=== PATIENT | female | born 1955 | race African-American/Black ===

== ENCOUNTER 2016-12-19 09:19 | Emergency (ER) | payer OTHER ==
[~2016-12-19 09:19] MED LIST: ALBUTEROL17 G1 IH; ALBUTEROL17 GM INH; AMOXICILLIN875 MG PO; ASPIRIN PO; ATIVAN PO; BENZONATATE PO; CALCIUM1 TAB.CHEW; DIFLUCAN PO; FE 90 PLUS TAB1 EACH; FLEXERIL10 MG PO; FLONASE 0.05% N16 G1; HYDROXYZINE HCL25 M1 PO; LORTAB 5/500 TA1 TA1 PO; M.V.I. ADULT10 ML; MEDROL DOSEPAK4 MG PO; MEDROL4 MG/DOSE- PO; MOTRIN600 MG PO; NASONEX17 GM; PREDNISONE PO; ROBAXIN500 MG PO; SINGULAIR; SINGULAIR PO; VICODIN 5/1 TAB 5/50 PO; VOLTAREN50 MG PO; XYZAL5 MG; XYZAL5 MG PO; ZITHROMAX PO
[2016-12-19] MEDS ORDERED: FLONASE 0.05% N16 G1 (09:27)
== END 2016-12-19 10:38 | disposition home or self-care (01) ==
LOC: SED 09:19
DX: H66.92 Otitis media, unspecified, left ear (principal); J01.00 Acute maxillary sinusitis, unspecified; I10 Essential (primary) hypertension; F41.9 Anxiety disorder, unspecified; F32.9 Major depressive disorder, single episode, unspecified; J45.909 Unspecified asthma, uncomplicated; Z87.891 Personal history of nicotine dependence; Z91.040 Latex allergy status
CPT/HCPCS: 99282; 99283

== ENCOUNTER 2017-03-22 10:23 | Emergency (ER) | payer OTHER ==
--- NOTE | ~2017-03-22 | CR94 ---
[facility] A Service of [facility] & [facility] & [facility] RADIOLOGY TEXT RESULTS PATIENT: LUISA MCKEON LOCATION: SED : 59 UNIT #: [id number] AGE: [address]: [address] [place] SEX: F ORDER DR: [id number] [place] [id number] E MR#: [id number] Acc #: [id number] NAME: LUISA MCKEON. : 1955 SEX: F STUDY DATE/TIME: 03/22/2017 11:21 UNIT: SED ROOM: STUDY DESCRIPTION: CR Elbow Min 3 Views Rt Attending Physician: Court Preston Aprn Ordering Physician: Court Preston Aprn Primary Care Physician: Molly Damon M.D. MEDICAL IMAGING REPORT This report is preliminary unless electronic signature is present. EXAM Right elbow 3 views 03/22/2017 1121 hours HISTORY 61-year-old woman who slipped and fell on concrete at work today. Elbow pain since fall. COMPARISON None. FINDINGS AP, lateral and oblique views demonstrate no elbow joint effusion or fracture. There is mild soft tissue swelling posterior to the olecranon. IMPRESSION 1. No joint effusion or fracture. 2. Mild soft tissue swelling posterior to the olecranon. Dictated by... Windy Vásquez M.D. THIS IS AN ELECTRONICALLY VERIFIED REPORT Windy Vásquez M.D. at 03/22/2017 2:31 PM KAREEMM/rnr TD: 03/22/2017 12:49 JOB #: [id number] MEDICAL IMAGING REPORT Page 1 of 1
--- NOTE | ~2017-03-22 | CR157 ---
[facility]. [facility] A Service of [facility] & [facility] RADIOLOGY TEXT RESULTS PATIENT: LUISA MCKEON LOCATION: SED : 59 UNIT #: [id number] AGE: [address]: [address] [place] SEX: F ORDER DR: [id number] [place] [id number] E MR#: [id number] Acc #: [id number] NAME: LUISA MCKEON. : 1955 SEX: F STUDY DATE/TIME: 03/22/2017 11:21 UNIT: SED ROOM: STUDY DESCRIPTION: CR Humerus Min 2 View Rt Attending Physician: Court Preston Aprn Ordering Physician: Court Preston Aprn Primary Care Physician: Molly Damon M.D. MEDICAL IMAGING REPORT This report is preliminary unless electronic signature is present. 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 COMPARISON Right shoulder 06/09/2015 FINDINGS AP and lateral views of the right humerus demonstrate no fracture. There is no dislocation seen at the shoulder or elbow. Previous soft tissue calcifications adjacent to the greater tuberosity on 06/09/2015 have resolved. IMPRESSION Negative right humerus. Dictated by... Windy Vásquez M.D. THIS IS AN ELECTRONICALLY VERIFIED REPORT Windy Vásquez M.D. at 03/22/2017 2:31 PM MEL/antony TD: 03/22/2017 12:43 JOB #: [id number] MEDICAL IMAGING REPORT Page 1 of 1
[2017-03-22] MEDS ORDERED: ZYRTEC10 M1 PO (10:30)
== END 2017-03-22 12:38 | disposition home or self-care (01) ==
LOC: SED 10:23
DX: S39.012A Strain of muscle, fascia and tendon of lower back, initial encounter (principal); S16.1XXA Strain of muscle, fascia and tendon at neck level, initial encounter; S50.01XA Contusion of right elbow, initial encounter; Z88.1 Allergy status to other antibiotic agents; Z79.899 Other long term (current) drug therapy; Z91.040 Latex allergy status; W01.0XXA Fall on same level from slipping, tripping and stumbling without subsequent striking against object, initial encounter; Y92.69 Other specified industrial and construction area as the place of occurrence of the external cause; Y99.0 Civilian activity done for income or pay
CPT/HCPCS: 29260; 73060; 73080; 99283

== ENCOUNTER → 2017-04-06 | Outpatient (CLI) | payer OTHER ==
[~2017-04-06] MED LIST changes: +ZYRTEC10 M1 PO
--- NOTE | ~2017-04-06 | MY29 ---
[facility] A Service of [facility] RADIOLOGY TEXT RESULTS PATIENT: LUISA MCKEON LOCATION: [facility] : 59 UNIT #: [id number] AGE: [address]: MANUEL FRANCO MD SEX: F ORDER DR: [id number] [facility] [address] [place], [place] [address] [id number] O MR#: [id number] Acc #: [id number] NAME: LUISA MCKEON. : 1955 SEX: F STUDY DATE/TIME: 04/06/2017 10:13 UNIT: [facility] ROOM: STUDY DESCRIPTION: [facility] SCREENING W/ CAD BILAT Attending Physician: Manuel Franco M.D. Referring Physician: Manuel Franco M.D. Ordering Physician: Manuel Franco M.D. Primary Care Physician: Manuel Franco M.D. MEDICAL IMAGING REPORT This report is preliminary unless electronic signature is present EXAM Bilateral digital screening mammogram with CAD 04/06/2017. INDICATIONS 61-year-old female for routine screening. No reported problems. No personal or family history of breast cancer. No surgeries. TECHNIQUE CC and MLO views of the breasts were obtained and reviewed with an FDA-approved CAD device. COMPARISON 03/03/2016, 02/23/2015, 12/27/2013. FINDINGS Breast parenchyma is composed of scattered fibroglandular densities. The pattern is unchanged. Subareolar predominance bilaterally persists. There is no new dominant nodule, mass, or suspicious cluster of microcalcifications. IMPRESSION Negative screening mammogram; 1-year followup recommended. Patients over the age of 40 are entered into a reminder system with target due date for the next mammogram. A result letter will also be sent to the patient. BIRADS: 1 Negative Dictated by... Ramesh Pitt M.D. [facility] A Service of [facility] RADIOLOGY TEXT RESULTS PATIENT: LUISA MCKEON LOCATION: [facility] : 59 UNIT #: [id number] AGE: [address]: MANUEL FRANCO MD SEX: F ORDER DR: THIS IS AN ELECTRONICALLY VERIFIED REPORT Ramesh Pitt M.D. at 04/06/2017 6:07 PM Ernesto TD: 04/06/2017 17:52 JOB #: [id number] MEDICAL IMAGING REPORT Page 1 of 1 COPY
== END | disposition home or self-care (01) ==
LOC: CWCC 03-30 12:45
DX: Z12.31 Encounter for screening mammogram for malignant neoplasm of breast (principal)
CPT/HCPCS: G0202